=== PATIENT | female | born 1975 | race Two or more races ===

== ENCOUNTER → 2024-03-02 | Outpatient (CLI) | payer MEDICAID, SELFPAY ==
--- NOTE | 2024-03-02 11:10 | XR_ITS ---
Examination: Abdomen AP single view Technique: AP portable supine abdomen, single view Exam date and time: March 02, 2024 1229 hours INDICATIONS: Hematuria episodes beginning 2 years ago. FINDINGS: No renal or ureteral calculi noted Nonobstructive bowel gas pattern IMPRESSION: No renal or ureteral calculi noted
== END | disposition home or self-care (01) ==
PROVIDERS: PCP Surgery; Referring Provider Surgery; Visit Provider Surgery
DX: R31.9 Hematuria, unspecified (principal)
CPT/HCPCS: 74018

== ENCOUNTER → 2024-05-16 | Outpatient (CLI) | payer MEDICAID, SELFPAY ==
--- NOTE | 2024-05-16 09:16 | XR_ITS ---
Examination: Abdomen AP single view Technique: AP portable supine abdomen, single view Exam date and time: May 16, 2024 0934 hrs. Indications: Hematuria beginning 2 years ago. Findings: No renal or ureteral calculi Moderate stool throughout the colon No obstruction Impression: No renal or ureteral calculi
--- NOTE | 2024-05-16 10:00 | XR_ITS ---
Examination: Retroperitoneal ultrasound, complete Technique: Multiple high resolution grayscale images of the retroperitoneum obtained, including kidneys and bladder. Exam date and time:May 16, 2024 0921 hrs. Indications: Hematuria beginning 2 years ago Findings: Right kidney 11.8 x 5.4 x 5.1 cm cortex 2.0 cm Left kidney 11.4 x 5.7 x 4.6 cm in the cortex 2.1 cm Mild bilateral renal parenchymal scar formation No hydronephrosis No bladder mass or bladder calculi Bladder prevoid findings 323 cc Incidental note left ovarian cyst 4.2 x 3.5 x 3.5 cm Impression: Mild bilateral renal parenchymal scar formation, no hydronephrosis Recommend pelvic sonography to further assess left ovarian cystic disease
== END | disposition home or self-care (01) ==
LOC: CDIM 09:03
PROVIDERS: Referring Provider Surgery; Visit Provider Surgery
DX: N28.89 Other specified disorders of kidney and ureter (principal)
CPT/HCPCS: 74018; 76770